=== PATIENT | female | born 1985 | race Caucasian/White ===

== ENCOUNTER 2017-07-22 10:23 | Observation (INO) ==
[2017-07-22] MEDS ORDERED: *HR* HYDROmorphone (PF) 1 MG/ML SYRINGE IVP ONE ×2 (10:28→11:57)
[2017-07-22] MEDS ORDERED: Ketorolac 15 MG/ML VIAL IVP ONE (10:28)
[2017-07-22] MEDS ORDERED: Ondansetron 4 MG/2 ML VIAL IVP ONE (10:28)
--- NOTE | 2017-07-22 10:34 | Emergency Department Note ---
Disposition Clinical Impression: Renal colic on right side, Kidney stone on right side Disposition: Admitted As Inpatient Condition: Fair Referrals: Nika Patel, ESCALATOR CONSTRUCTOR [Primary Care Provider] - Time of Disposition: 10:41 Female Urogenital HPI - General Stated complaint: Kidney stones Time Seen by Provider: 07/22/17 10:26 Source: patient Mode of arrival: ambulatory Limitations: no limitations Nursing Notes Reviewed: Yes Vital Signs Reviewed: Yes - History of Present Illness HPI Narrative: Patient complains of severe right flank pain. Symptoms for the past several days. This is her third ED visit for the same. She had a CT scan, labs, urinalysis at [facility] yesterday. Symptoms persist despite prescription analgesics. She had a scheduled appointment with the urologist this afternoon but cannot wait that long. She has a history of ureteral stones that required extraction Onset (ago): day(s) Radiation: R flank Severity: severe Severity scale (1-10): 10 Quality: aching Duration: constant Improves with: none Worsens with: none Associated symptoms: Reports: nausea/vomiting - Related Data Home Medications Medication Instructions Recorded Confirmed Ciprofloxacin [Cipro] 250 mg PO BID 07/21/17 07/21/17 HYDROcodone/Acet 5/325 mg [[place] 1 tab PO Q4H PRN 07/21/17 07/21/17 5-325 mg] Ondansetron HCl [Zofran] 4 mg PO Q6H 07/21/17 07/21/17 Previous Rx's Medication Instructions Recorded Ondansetron ODT [Zofran ODT] 4 mg SL Q6HR PRN #10 tab.rapdis 07/21/17 Oxycodone HCl/Acetaminophen 1 - 2 each PO Q6H PRN #20 tablet 07/21/17 [Percocet 5-325 mg Tablet] Tamsulosin HCl [Flomax] 0.4 mg PO DAILY #10 cap.er.24h 07/21/17 Allergies Allergy/AdvReac Type Severity Reaction Status Date / Time No Known Allergies Allergy Verified 07/21/17 18:36 All systems ED: reviewed and negative except as stated. Constitutional: Reports: as per HPI Eyes: Reports: as per HPI ENT ED: Reports: as per HPI Cardiovascular: Reports: as per HPI Respiratory: Reports: as per HPI Gastrointestinal: Reports: nausea, vomiting Genitourinary: Reports: as per HPI Musculoskeletal: Reports: back pain Integumentary: Reports: as per HPI Neurological: Reports: as per HPI Psychiatric: Reports: as per HPI Endocrine: Reports: as per HPI Hematological/Lymphatic: Reports: as per HPI Allergic/Immunologic: Reports: as per HPI Past Medical History - Past Medical History Source: patient Medical history: Reports: kidney stones Psychiatric history: Reports: no psych history - Social History Smoking Status: Never smoker Smokeless Tobacco Status: No Alcohol use: Reports: none Drug use: Reports: none Physical Exam Patient standing. Moaning. Pacing. Uncomfortable. Holding hand over her right flank - General Limitations: no limitations General appearance: alert, anxious, in distress - Head Head exam: atraumatic - Eye Eye exam: Present: normal appearance - ENT ENT exam: normal exam - Neck Neck exam: Present: normal inspection, full ROM - Chest Chest inspection: Present: normal inspection, symmetric chest wall rise - Respiratory Respiratory exam: Present: normal lung sounds bilaterally - Cardiovascular Cardiovascular exam: Present: regular rate, normal rhythm, normal heart sounds - Abdominal Exam Abdominal exam: Present: soft, Non-Tender. Absent: tenderness Abdominal tenderness: Absent: RUQ, RLQ - Rectal Exam Rectal exam: Present: deferred - Extremities Exam Extremities exam: Present: normal inspection - Neurological Exam Neurological exam: Present: alert, oriented X3, CN II-XII intact - Psychiatric Psychiatric exam: Present: anxious - Skin Skin exam: Present: warm, dry, intact Course Course Narrative: Patient presents with continued right flank pain. I did review the labs from an outside facility dated 07/21/17 as well as the transcribed report of her CT abdomen and pelvis from the same date. It appears she has 25 mm proximal right ureteral calculi as well as a 3 mm left UPJ calculus. - Reevaluation(s) Reevaluation #1: Dr. Ac recs admission to his service - Consultations Consultation #1: Call placed to urology transitional care manager at 10:30 (Dr. Ac) Vital Signs Temperature 97.6 F 07/22/17 10:32 Pulse Rate 89 07/22/17 10:32 Respiratory Rate 22 07/22/17 10:32 Blood Pressure 154/88 07/22/17 10:32 O2 Sat by Pulse Oximetry 98 07/22/17 10:32 Temperature 97.6 F 07/22/17 10:32 Pulse Rate 89 07/22/17 10:32 Respiratory Rate 22 07/22/17 10:32 Blood Pressure 154/88 07/22/17 10:32 O2 Sat by Pulse Oximetry 98 07/22/17 10:32 Oxygen Delivery Oxygen Delivery Room Air Urogenital-Female - Medical Records Medical records reviewed: Yes I reviewed the patient's medical records.
[2017-07-22] MEDS ORDERED: Naloxone 0.4 MG/ML INJ IVP PRN (12:26)
[2017-07-22] MEDS ORDERED: Promethazine 25 MG in 0.9 % Sodium Chloride 50 ML IVPB PRN (12:29)
[2017-07-22 13:12] LABS: Basophils % 0.2 %; Eosinophils # 0.2 K/mcL (0.0-0.6); Eosinophils % 1.1 %; Hematocrit 36.3 % (35.3-44.9); Hemoglobin 11.7 g/dL (11.5-15.4); Immature Granulocytes % 0.4 % (0-4); Lymphocytes # 2.3 K/mcL (0.6-4.6); Lymphocytes % 17.6 %; Mean Corpuscular HGB Conc 32.2 g/dL (31.6-35.5); Mean Corpuscular Hemoglobin 29.3 pg (28.0-33.3); Mean Corpuscular Volume 90.8 fL (83.0-100.0); Mean Platelet Volume 11.9 fL (9.4-12.4); Monocytes # 0.6 K/mcL (0.0-1.3); Monocytes % 4.3 %; Platelet Count 217 K/mcL (140-400); Red Cell Distribution Width 12.5 % (11.5-14.5); Segmented Neutrophils % 76.4 %
[2017-07-22 13:21] LABS: INR 1.2; Prothrombin Time 12.9 Seconds (9.4-12.1)
[2017-07-22] MEDS: *HR* HYDROcodone/Acet 5/325 mg TABLET PO PRN ×2 (13:27→19:32)
[2017-07-22] MEDS: 0.9 % Sodium Chloride 1,000 ML IVC SCH ×2 (13:28→20:32)
[2017-07-22] MEDS: *HR* HYDROmorphone (PF) 1 MG/ML SYRINGE IVP PRN ×2 (16:25→20:32)
--- NOTE | 2017-07-22 18:20 | Urology History & Physical ---
Date of Encounter: 07/22/17 Time of Encounter: 18:19 Assessment and Plan (1) Bilateral ureteral calculi Current Visit: Yes Status: Acute Patient was brought in for observation for IV fluids and IV pain control. Patient will be scheduled for bilateral ureteroscopic stone extraction. History of Present Illness Chief complaint: right flank pain HPI: Ms. Calderon is a 32 year old female with history of recent trip to the emergency Department secondary to severe right-sided flank pain. Patient was found to have a right proximal 2 separate stones in the right ureter. As well as a left 4-5 mm UPJ stone. Patient has had persistent nausea with vomiting. No fevers. Pain is uncontrolled with by mouth pain medication. Patient had similar episode approximately 2-3 years ago. Past Med Surg Social Fam HX - Past Medical History Medical history: kidney stones Psychiatric history: no psych history - Social History Smoking Status: Never smoker Smokeless Tobacco Status: No Alcohol use: none Drug use: none - Family History Father Hx Family Cardiac Disorders: No Hx Family Respiratory Disorders: Yes (COPD) Hx Family Cancer: No Hx Family GI Disorders: No Hx Family Genitourinary Disorders: No Hx Family Endocrine Disorder: Yes (DM type 2) Hx Family Musculoskeletal Disorders: No Hx Family Neuromuscular Disorders: No Hx Family Neurologic Disorders: No Hx Family HEENT Disorders: No Hx Family Autoimmune Disorders: No Hx Family Reproductive Disorders: No Hx Family Psychosocial Disorders: No Hx Family Medical Disorders: No Mother Hx Family Cardiac Disorders: Yes (OR (grandparents and uncle)) Hx Family Respiratory Disorders: No Hx Family Cancer: No Hx Family GI Disorders: No Hx Family Genitourinary Disorders: No Hx Family Endocrine Disorder: Yes (DM type 2) Hx Family Musculoskeletal Disorders: No Hx Family Neuromuscular Disorders: No Hx Family Neurologic Disorders: No Hx Family HEENT Disorders: No Hx Family Autoimmune Disorders: Yes (crhons) Hx Family Reproductive Disorders: No Hx Family Psychosocial Disorders: No Hx Family Medical Disorders: No Medications and Allergies Ondansetron ODT [Zofran ODT] 4 mg SL Q6HR PRN #10 tab.rapdis 07/21/17 [Rx] Oxycodone HCl/Acetaminophen [Percocet 5-325 mg Tablet] 1 - 2 each PO Q6H PRN # 20 tablet 07/21/17 [Rx] Tamsulosin HCl [Flomax] 0.4 mg PO DAILY #10 cap.er.24h 10/04/17 [Rx] Phenazopyridine HCl [Pyridium] 200 mg PO TIDAC 07/22/17 [History] 3 Allergy/AdvReac Type Severity Reaction Status Date / Time No Known Allergies Allergy Verified 07/21/17 18:36 Review of Systems - Constitutional no chills - EENT Nose, mouth and throat: no dizziness - Cardiovascular no chest pain - Respiratory no cough - Gastrointestinal abdominal pain Exam Initial Vital Signs Temp Pulse Resp BP Pulse Ox 97.6 F 89 22 154/88 98 07/22/17 10:32 07/22/17 10:32 07/22/17 10:32 07/22/17 10:32 07/22/17 10:32 - General physical appearance Present: well developed - Respiratory Present: normal respiratory effort - Cardiovascular Cardiovascular exam IM: RRR - Abdomen Abdomen: Present: soft - Integumentary Present: no rash - Neurologic Present: normal coordination Urology Results - Labs 07/22/17 12:42 Abnormal lab results WBC 13.1 K/mcL (4.3-11.1) H 07/22/17 12:42 Neutrophils # 10.0 K/mcL (1.6-8.9) H 07/22/17 12:42 PT 12.9 Seconds (9.4-12.1) H 07/22/17 12:42 All other labs normal. - Imaging CT scan - abdomen: image reviewed CT scan - pelvis: image reviewed
--- NOTE | 2017-07-22 20:18 | Anesthesia Evaluation PreOp ---
Date of Encounter: 07/22/17 Time of Encounter: 20:16 - Past History Planned Operation: Bilateral Ureteroscopic Stone Extraction Cardiac History: Denies any Significant Hx Pulmonary History: Asthma DAM ATTENDANT History: Denies Any Significant HX Other Medical History: Renal (kidney stones), Other (obesity BMI=41.2) Anesthesia History: No Prior Anesthetic Complications, Past Anesthesia Alcohol Use: none Drug use: none Medications and Allergies Ondansetron ODT [Zofran ODT] 4 mg SL Q6HR PRN #10 tab.rapdis 07/21/17 [Rx] Oxycodone HCl/Acetaminophen [Percocet 5-325 mg Tablet] 1 - 2 each PO Q6H PRN # 20 tablet 07/21/17 [Rx] Tamsulosin HCl [Flomax] 0.4 mg PO DAILY #10 cap.er.24h 07/21/17 [Rx] Phenazopyridine HCl [Pyridium] 200 mg PO TIDAC 07/22/17 [History] 3 Allergy/AdvReac Type Severity Reaction Status Date / Time No Known Allergies Allergy Verified 07/21/17 18:36 - Meds/Allergy Pre-op Review Medications Reviewed: Yes Allergies Reviewed: Yes Beta Blockers on Current Med List: No Anesthesia Results - Labs 07/22/17 12:42 Laboratory Tests 07/21/17 19:04 Urine Test Negative Anesthesia Exam Vital Signs/O2 Sat, Most Current Temp Pulse Resp BP Pulse Ox 98.3 F 70 16 101/65 97 07/22/17 19:06 07/22/17 19:06 07/22/17 19:06 07/22/17 19:06 07/22/17 19:06 Height: 5'4''/1.63 m Weight: 240 lbs/108.862 kg - HEENT Pupil (Motor): EOMI Mallampati: II Teeth: Normal Oral Opening: Greater than 3 - DAM ATTENDANT LOC: Oriented DAM ATTENDANT Motor: Normal RUE, Normal LUE, Normal RLE, Normal LLE, Normal Face DAM ATTENDANT Sensory: Normal: RUE, LUE, RLE, LLE, Face - Cardiac Rhythm: Regular Murmur: None - Pulmonary Breath Sounds: bilateral Clear Respiratory Effort: Symmetrical Anesthesia Assess/Plan ASA Score: 3 Modified [place] Scale for Level of Consciousness: Cooperative, oriented, and tranquil Anesthetic Plan: General Monitoring Plan: Standard Monitors Recovery Plan: PACU
[2017-07-23] MEDS: *HR* HYDROmorphone (PF) 1 MG/ML SYRINGE IVP PRN ×8 (00:29→19:58)
[2017-07-23] MEDS: *HR* HYDROcodone/Acet 5/325 mg TABLET PO PRN ×2 (07:59→21:29)
[2017-07-23] MEDS: 0.9 % Sodium Chloride 1,000 ML IVC SCH (08:00)
--- NOTE | 2017-07-23 09:33 | Urology Progress Note ---
Date of Encounter: 07/23/17 Time of Encounter: 09:32 - Assessment and Plan (1) Bilateral ureteral calculi Current Visit: Yes Status: Acute Assessment and plan: to OR today for stone extraction Progress Note Narrative: patient seen this am. some pain last night. Objective Initial Vital Signs Temp Pulse Resp BP Pulse Ox 97.6 F 89 22 154/88 98 07/22/17 10:32 07/22/17 10:32 07/22/17 10:32 07/22/17 10:32 07/22/17 10:32 - General physical appearance Present: well developed - Abdomen Present: soft - Labs 07/22/17 12:42 Consult Discharge Plan - Plan
[2017-07-23] MEDS ORDERED: Dexamethasone 4 MG/ML VIAL ONE (14:36)
[2017-07-23] MEDS ORDERED: *HR* FentaNYL (PF) 100 MCG/2 ML VIAL ONE ×2 (14:36→16:20)
[2017-07-23] MEDS ORDERED: *HR* Midazolam HCl 2 MG/2 ML VIAL ONE (14:36)
[2017-07-23] MEDS ORDERED: Ondansetron 4 MG/2 ML VIAL ONE (14:36)
[2017-07-23] MEDS ORDERED: Lidocaine -MPF 2% 2 ML VIAL ONE (14:36)
[2017-07-23] MEDS ORDERED: *HR* Propofol 200 MG/20 ML VIAL IVP ONE (14:37)
[2017-07-23] MEDS ORDERED: Albuterol 2.5 MG/3 ML NEBULIZER ONE (15:01)
[2017-07-23] MEDS ORDERED: Lidocaine -MPF 4% 5 ML AMPUL ONE (15:06)
[2017-07-23] MEDS ORDERED: *HR* Rocuronium Bromide 50 MG/5 ML VIAL ONE (15:06)
[2017-07-23] MEDS ORDERED: Lacri-Lube 3.5 GM TUBE ONE (15:38)
[2017-07-23] MEDS ORDERED: Neostigmine Methylsulfate 3 MG/3 ML SYRINGE ONE (15:48)
[2017-07-23] MEDS ORDERED: *HR* Promethazine 25 MG/ML VIAL IVP PRN (15:57)
[2017-07-23] MEDS ORDERED: *HR* Meperidine 25 MG/ML SYRINGE IVP PRN (15:57)
[2017-07-23] MEDS ORDERED: Ondansetron 4 MG/2 ML VIAL IVP ONE (15:57)
--- NOTE | 2017-07-23 16:29 | Operative Note ---
Date of procedure: 07/23/17 Pre-op diagnosis: bilateral ureteral stones Post-op diagnosis: same Procedure: Bilateral ureteroscopic stone extraction with laser and basket retrieval of stones. Bilateral 4.8 x 26 cm ureteral stent placement Anesthesia: JUAN Surgeon: Rory Ac Specimen: Right ureteral stone Condition: stable Disposition: PACU Procedure in Detail: Patient was prepped and draped in normal sterile fashion. Timeout procedure performed. I then inserted the semirigid ureteroscope into the patient's bladder. I was able to cannulate the right ureteral orifice. I encountered a distal 4 mm stone. I then used the holmium laser to fragment the stone. All of the stone fragments were removed from the patient's ureter. I then placed the semirigid ureteroscope all the way up to the right UPJ stone. I was able to laser this but unable to remove it secondary to location. I then placed a sensor wire into the right kidney and then was able to place a flexible ureteroscope into the right kidney. I used a basket to remove this stone in its entirety. I then placed a sensor wire into the left ureteral orifice using the semirigid ureteroscope. I then had to place the 11 x 13 x 36 access sheath into the left ureter advancing toward the left kidney. I then placed the flexible ureteroscope were encountered the proximal left 4 mm stone. I then used the holmium laser fragment the stone. Stone was dusted with fragments less than 1 mm left. I then placed a sensor wire back into the left kidney. A 4.8 x 26 cm ureteral stent was placed in the left kidney using fluoroscopy. Good curl was seen in the left kidney and in the bladder. This was then repeated on the right side once a sensor wire was placed back into the right kidney. A 4.8 x 26 immediate ureteral stent was placed there as well. A string was left on both stents for easy removal in 2-3 days.
--- NOTE | 2017-07-23 16:31 | Discharge Summary ---
Date of Encounter: 07/23/17 Time of Encounter: 16:29 - Discharge Diagnosis (1) Bilateral ureteral calculi Priority: Primary Status: Acute - Discharge Medications Prescriptions: HYDROcodone/Acet 5/325 mg [[place] 5-325 mg] 2 tab PO Q6HR PRN #20 tablet PRN Reason: Pain Oxybutynin [Ditropan] 5 mg PO TID #20 tablet Home Medications: Ondansetron ODT [Zofran ODT] 4 mg SL Q6HR PRN #10 tab.rapdis 07/21/17 [Rx] Tamsulosin HCl [Flomax] 0.4 mg PO DAILY #10 cap.er.24h 07/21/17 [Rx] Phenazopyridine HCl [Pyridium] 200 mg PO TIDAC 07/22/17 [History] HYDROcodone/Acet 5/325 mg [[place] 5-325 mg] 2 tab PO Q6HR PRN #20 tablet [Rx] Oxybutynin [Ditropan] 5 mg PO TID #20 tablet 07/23/17 [Rx] Allergies/Adverse Reactions: 3 Allergy/AdvReac Type Severity Reaction Status Date / Time No Known Allergies Allergy Verified 07/21/17 18:36 Procedures and tests throughout hospitalization: Bilateral ureteroscopic stone extraction with stent placement on 07/23/2017 Date of admission: 07/22/17 10:49 Primary care physician: Nika Patel CNP Consults: 07/22/17 12:12 Consult to Pharmacy Affairs Assistant [CONS] Routine Reason for SW Consult: HCAP form needed. Discharging clinician: Rory Ac Anticipated date of discharge: 07/23/17 - Patient Status Disposition: Home, Self-Care Condition: Good Overall status at discharge: patient is progressing back to baseline - Discharge Instructions Follow Up With: Nika Patel CNP [Primary Care Provider] - Rory Ac MD [Partnered Physician] - (2-3 weeks chucky ) Forms: ED Satisfaction Letter, Work/School Release Additional Instructions: Patient can expect some blood in her urine for the next 2-3 weeks. Okay for patient to remove her own stent in 2-3 days. If patient unable to remove her stent she can call the office for appointment on Wednesday for removal. - Diet and Activity Activity: increase activity as tolerated Diet: advance to your usual diet - Hospital Course Hospital course: Ms. Calderon is a 32 year old female who was brought in for observation for bilateral ureteral stones. Patient taken operating room on hospital day #2. Bilateral ureteroscopic stone extraction was performed with bilateral ureteral stent placement. Time spent discussing smoking cessation with patient: 3 to 10 minutes - Time Spent with Patient Total time spent providing and/or coordinating discharge services: Less than 30 minutes Exam Initial Vital Signs Temp Pulse Resp BP Pulse Ox 97.6 F 89 22 154/88 98 07/22/17 10:32 07/22/17 10:32 07/22/17 10:32 07/22/17 10:32 07/22/17 10:32 - General physical appearance Present: well developed - ENT Present: normal nares - Neck Present: no masses - Respiratory Present: normal respiratory effort
[2017-07-23] MEDS ORDERED: Ringers Solution, Lactated 1,000 ML ONE (16:32)
[2017-07-23] MEDS ORDERED: Acetaminophen IV 1,000 MG/100 ML INFUS..BTL IVPB ONE (16:52)
[2017-07-23] MEDS ORDERED: *HR* Belladonna Alkaloids/Opium 60 MG RECTAL SUPPOSITORY RC ONE (17:00)
[2017-07-23] MEDS ORDERED: Acetaminophen IV 1,000 MG/100 ML INFUS..BTL ONE (17:00)
[2017-07-23] MEDS ORDERED: *HR* Belladonna Alkaloids/Opium 30 MG RECTAL SUPPOSITORY RC ONE (17:36)
--- NOTE | 2017-07-23 17:38 | Event Note ---
Date of Encounter: 07/23/17 Time of Encounter: 17:37 Patient was seen in PACU. patient was complaining of severe bladder pain. She wanted the stents removed. I explained to the patient the risks of prematurely removing her stents. she voiced understanding. The stents were then both removed.
--- NOTE | 2017-07-23 17:54 | Anesthesia Evaluation Post Op ---
Date of Encounter: 07/23/17 Time of Encounter: 17:54 - Vital Signs Vital Signs: Vital Signs/O2 Sat, Most Current Temp Pulse Resp BP Pulse Ox 97.7 F 70 16 115/68 95 07/23/17 17:30 07/23/17 17:40 07/23/17 17:40 07/23/17 17:40 07/23/17 17:40 - Lungs Lungs: Clear Ascult./Percussion - Airway Airway: Non-obstructed - Cardiovascular Regular Rate - Mental Status Mental Status: Alert & Oriented, Answers Appropriately - Pain Pain Scale: 0 Pain Scale used: Numeric (1 - 10) - Hydration Hydration: Tolerates oral liquids, Able to void - Discharge PostOp Status: Transfer Patient to floor
[2017-07-23] MEDS ORDERED: Promethazine 25 MG in 0.9 % Sodium Chloride 50 ML IVPB PRN (18:01)
[2017-07-23] MEDS ORDERED: 0.9 % Sodium Chloride 1,000 ML IVC SCH (18:01)
[2017-07-23] MEDS ORDERED: *HR* Belladonna Alkaloids/Opium 60 MG RECTAL SUPPOSITORY RC PRN (18:01)
[2017-07-23] MEDS ORDERED: Naloxone 0.4 MG/ML INJ IVP PRN (18:01)
[2017-07-24] MEDS: *HR* HYDROmorphone (PF) 1 MG/ML SYRINGE IVP PRN (00:15)
[2017-07-24 04:11] VITALS: BP 121/75
[2017-07-24] MEDS: *HR* HYDROcodone/Acet 5/325 mg TABLET PO PRN (04:13)
--- NOTE | 2017-07-24 07:55 | Urology Progress Note ---
Date of Encounter: 07/24/17 Time of Encounter: 07:54 - Assessment and Plan (1) Bilateral ureteral calculi Current Visit: Yes Status: Acute Assessment and plan: dc home today. f/u in 2-3 weeks Progress Note Narrative: patient seen. going home this am. feeling better. Objective Initial Vital Signs Temp Pulse Resp BP Pulse Ox 97.6 F 89 22 154/88 98 07/22/17 10:32 07/22/17 10:32 07/22/17 10:32 07/22/17 10:32 07/22/17 10:32 - General physical appearance Present: well developed - Abdomen Present: soft - Labs 07/22/17 12:42 - VTE Documentation of Mechanical Device: Intermittent pneumatic compression device Consult Discharge Plan - Plan Instructions: Kidney Stones (DC) Additional Instructions: Patient can expect some blood in her urine for the next 2-3 weeks. Okay for patient to remove her own stent in 2-3 days. If patient unable to remove her stent she can call the office for appointment on Wednesday for removal. Referrals: Rory Ac MD [Partnered Physician] - (We have requested a follow up appointment with Dr Ac. THe office will call you at home with an appointment date and time.) Nika Patel CNP [Primary Care Provider] - Prescriptions: HYDROcodone/Acet 5/325 mg [[place] 5-325 mg] 2 tab PO Q6HR PRN #20 tablet PRN Reason: Pain Oxybutynin [Ditropan] 5 mg PO TID #20 tablet
== END 2017-07-24 08:24 | disposition home or self-care (01) ==
LOC: EMEROO 10:23 → 3BNU 10:23
PROVIDERS: ADMIT Urology; ATTEND Urology

== ENCOUNTER 2020-11-16 11:23 | Observation (INO) ==
[2020-11-16] MEDS ORDERED: *HR* FentaNYL (PF) 100 MCG/2 ML VIAL IVP ONE (11:38)
[2020-11-16] MEDS ORDERED: 0.9 % Sodium Chloride 1,000 ML IVC ONE (11:38)
[2020-11-16] MEDS ORDERED: Metoclopramide 10 MG/2 ML VIAL IVP ONE (11:38)
[2020-11-16] MEDS ORDERED: Ketorolac 15 MG/ML VIAL IVP ONE (11:38)
[2020-11-16 12:01] LABS: Basophils % 0.2 %; Eosinophils # 0.1 K/mcL (0.0-0.6); Eosinophils % 0.8 %; Hematocrit 35.1 % (35.3-44.9); Hemoglobin 11.2 g/dL (11.5-15.4); Immature Granulocytes % 0.4 % (0-4); Lymphocytes # 3.1 K/mcL (0.6-4.6); Lymphocytes % 33.5 %; Mean Corpuscular HGB Conc 31.9 g/dL (31.6-35.5); Mean Corpuscular Hemoglobin 29.2 pg (28.0-33.3); Mean Corpuscular Volume 91.4 fL (83.0-100.0); Mean Platelet Volume 11.9 fL (9.4-12.4); Monocytes # 0.5 K/mcL (0.0-1.3); Monocytes % 5.7 %; Neutrophils # 5.5 K/mcL (1.6-8.9); Platelet Count 218 K/mcL (140-400); Red Blood Count 3.84 M/mcL (3.82-4.97); Red Cell Distribution Width 13.2 % (11.5-14.5); Segmented Neutrophils % 59.4 %; White Blood Count 9.3 K/mcL (4.3-11.1)
[2020-11-16 12:20] LABS: BUN/Creatinine Ratio 24 (6-26); Blood Urea Nitrogen 16 mg/dL (6-20); Calcium 9.4 mg/dL (8.6-10.3); Carbon Dioxide 27 mEq/L (23-29); Chloride 104 mEq/L (98-107); Glucose 89 mg/dL (70-105); Osmolality,Calculated 291 (280-300); Potassium 3.3 mEq/L (3.5-5.1); Sodium 140 mEq/L (136-145); eGFR For African Americans > 60 (> 60); eGFR For Non-African Americans > 60 (> 60)
[2020-11-16 13:18] LABS: Bilirubin,Urine Negative (Negative); Blood,Urine Moderate (Negative); Calcium Oxalate Crystals,Urine Present; Clarity,Urine Clear (Clear); Color,Urine Yellow (Yellow); Glucose,Urine (UA) Normal (Normal); Ketones,Urine Negative (Negative); Leukocyte Esterase,Urine Small (Negative); Mucus,Urine Many per lpf (None-Few); Nitrite,Urine Negative (Negative); Protein,Urine 50 mg/dL (Neg-Trace); RBC,Urine 50-100 per hpf (0-3); Specific Gravity,Urine 1.028 (1.010-1.025); Squamous Epithelial Cell,Urine Few per hpf (None-Few); Urobilinogen,Urine Normal (Normal); WBC,Urine 15-30 per hpf (0-3)
[2020-11-16] MEDS ORDERED: Naloxone 0.4 MG/ML INJ IVP PRN (15:35)
[2020-11-16] MEDS ORDERED: 0.9 % Sodium Chloride 1,000 ML IVC SCH (15:45)
[2020-11-16] MEDS ORDERED: cefTRIAXone 1,000 MG in Water for inj. (sterile) 10 ML IVP SCH (16:00)
[2020-11-16] MEDS ORDERED: Ketorolac 15 MG/ML VIAL IVP PRN (17:52)
[2020-11-16] MEDS ORDERED: Isovue-300 50ML VIAL ONE (22:39)
[2020-11-16] MEDS ORDERED: Famotidine 20 MG/2 ML VIAL ONE (23:52)
[2020-11-16] MEDS ORDERED: Acetaminophen IV 1,000 MG/100 ML BAG IVPB ONE (23:52)
[2020-11-17] MEDS ORDERED: *HR* FentaNYL (PF) 100 MCG/2 ML VIAL ONE (00:01)
[2020-11-17] MEDS ORDERED: *HR* Midazolam HCl 2 MG/2 ML VIAL ONE (00:01)
[2020-11-17] MEDS ORDERED: *HR* Propofol 200 MG/20 ML VIAL IVP ONE (00:01)
[2020-11-17] MEDS ORDERED: Lidocaine -MPF 2% 2 ML VIAL ONE (00:02)
[2020-11-17] MEDS ORDERED: Dexamethasone 4 MG/ML VIAL ONE (00:02)
[2020-11-17] MEDS ORDERED: Ondansetron 4 MG/2 ML VIAL ONE (00:02)
[2020-11-17] MEDS ORDERED: *HR* OxyCODONE Immed Rel 5 MG TABLET PO PRN (00:43)
[2020-11-17] MEDS ORDERED: Ondansetron 4 MG/2 ML VIAL IVP PRN (00:46)
[2020-11-17] MEDS ORDERED: *HR* HYDROmorphone (PF) 1 MG/ML SYRINGE ONE (00:53)
[2020-11-17] MEDS: *HR* HYDROmorphone PF 0.5 MG/0.5 ML SYRINGE IVP PRN ×3 (00:56→01:11)
[2020-11-17] MEDS ORDERED: 0.9 % Sodium Chloride 1,000 ML IVC SCH (01:31)
[2020-11-17] MEDS ORDERED: Naloxone 0.4 MG/ML INJ IVP PRN (01:31)
[2020-11-17] MEDS: Ketorolac 15 MG/ML VIAL IVP PRN ×2 (01:43→07:39)
[2020-11-17 03:26] LABS: Basophils % 0.3 %; Eosinophils % 0.3 %; Hematocrit 31.9 % (35.3-44.9); Hemoglobin 10.2 g/dL (11.5-15.4); Immature Granulocytes % 0.4 % (0-4); Lymphocytes # 1.2 K/mcL (0.6-4.6); Lymphocytes % 16.1 %; Mean Corpuscular Hemoglobin 29.4 pg (28.0-33.3); Mean Corpuscular Volume 91.9 fL (83.0-100.0); Mean Platelet Volume 12.4 fL (9.4-12.4); Monocytes # 0.2 K/mcL (0.0-1.3); Monocytes % 2.5 %; Neutrophils # 6.2 K/mcL (1.6-8.9); Platelet Count 192 K/mcL (140-400); Red Blood Count 3.47 M/mcL (3.82-4.97); Segmented Neutrophils % 80.4 %; White Blood Count 7.7 K/mcL (4.3-11.1)
[2020-11-17 03:48] LABS: BUN/Creatinine Ratio 27 (6-26); Blood Urea Nitrogen 15 mg/dL (6-20); Calcium 8.4 mg/dL (8.6-10.3); Carbon Dioxide 23 mEq/L (23-29); Chloride 107 mEq/L (98-107); Glucose 112 mg/dL (70-105); Osmolality,Calculated 288 (280-300); Potassium 3.8 mEq/L (3.5-5.1); Sodium 138 mEq/L (136-145); eGFR For African Americans > 60 (> 60); eGFR For Non-African Americans > 60 (> 60)
[2020-11-17 07:19] VITALS: BP 123/77
[2020-11-17] MEDS ORDERED: cefTRIAXone 1,000 MG in Water for inj. (sterile) 10 ML IVP SCH (09:00)
== END 2020-11-17 12:37 | disposition home or self-care (01) ==
LOC: 3ANU 11:23 → EMEROOARM 11:23 → SUATTDRO 13:44 → 3ANU 14:39
PROVIDERS: ADMIT Student in an Organized Health Care Education/Training Program; ATTEND Internal Medicine